=== PATIENT | male | born 1950 | race Caucasian/White ===

== ENCOUNTER 2018-11-01 19:01 | Emergency (ER) | payer MEDICARE, BC ==
[2018-11-01 19:13] VITALS: BP 133/66
--- NOTE | 2018-11-01 20:18 | UC ---
Lower Extremity/Ankle HPI - HPI Summary HPI Summary: 67 y/o female presents to the urgent c/o Rt great toe pain w/ black great toe nail s/p falling 2 steps at a hotel on 10/08/2018. Pt reports he was on vacation in [place] and this is the reason he didn't get medical attention sooner. Pt thinks hie great toe nail s now loose and need to be removed. He has mild pain 1 /10 when he walks or at touch. he has PMHX of DM type II and adrenal Insufficiency. He has applied Bacitracin oint ove the toe nail to avoid infection, but for the last week he has noticed mild redness at the base of the nail. Pt can move his toes or foot w/o any difficulty. Pt denies fever, numbness or tingling sensation over the Rt toe, SOB, calf pain, SOB, chest pain , fever, abdominal pain, N/v/D. - History of Current Complaint Chief Complaint: UCLowerExtremity Stated Complaint: SOFT TISSUE Time Seen by Provider: 11/01/18 20:02 Hx Obtained From: Patient Onset/Duration: Sudden Onset, Lasting Weeks - 1 month on 10/08/2018, Still Present Severity Initially: Moderate Severity Currently: Mild Pain Intensity: 1 Pain Scale Used: 0-10 Numeric Aggravating Factor(s): Ambulation Alleviating Factor(s): Rest, OTC Meds - bacitrain oint Able to Bear Weight: Yes - Risk Factors Gout Risk Factors: Negative DVT Risk Factors: Negative Septic Arthritis Risk Factor: Negative - Allergies/Home Medications Allergies/Adverse Reactions: Allergies Allergy/AdvReac Type Severity Reaction Status Date / Time No Known Allergies Allergy Verified 04/03/17 14:22 PMH/Surg Hx/FS Hx/Imm Hx Previously Healthy: Yes Endocrine History: Diabetes Other Endocrine History: adrenal insufficiency Cardiovascular History: Cardiac Disease - Surgical History Surgical History: Yes Surgery Procedure, Year, and Place: 3 HEART ABLASIONS-LAST ONE 2005 - Social History Alcohol Use: Occasionally Substance Use Type: None Smoking Status (MU): Never Smoked Tobacco Review of Systems All Other Systems Reviewed And Are Negative: Yes Constitutional: Positive: Negative Skin: Positive: Bruising - left great to nail w/ hematoma s/p injury Eyes: Positive: Negative ENT: Positive: Negative Respiratory: Positive: Negative Cardiovascular: Positive: Negative Gastrointestinal: Positive: Negative Genitourinary: Positive: Negative Motor: Positive: Negative Neurovascular: Positive: Negative Musculoskeletal: Positive: Other: - mild left great toe pain Neurological: Positive: Negative Psychological: Positive: Negative Is Patient Immunocompromised?: No Physical Exam - Summary Physical Exam Summary: Vital Signs Reviewed: Yes General : well developed, well nourished old male w/o any apparent distress Eyes: Positive: Conjunctiva Clear - PERRLA, EOMI ENT: Positive: Normal ENT inspection, Hearing grossly normal, Pharynx normal, TMs normal Neck: Positive: Supple, Nontender, No Lymphadenopathy Respiratory: Positive: Chest non-tender, Lungs clear, Normal breath sounds, No respiratory distress Cardiovascular: Positive: RRR, No Murmur, Pulses Normal Abdomen Description: Positive: Nontender, No Organomegaly, Soft. Negative: CVA Tenderness (R), CVA Tenderness (L) Bowel Sounds: Positive: Present Musculoskeletal: Positive: Strength Intact, ROM Intact, No Edema,R Foot/Toes: Pt is able to bear weight but ambulate with mild limping. Rt great toe w/ erythema at the base on the great toe nail. positive subungal hematoma black and loosen toe nail. No ecchymosis, ulcers or break in skin integrity. The Rt foot is without obvious asymmetry or deformity when compared to the R foot. No bony step-off, No tenderness to palpation over toes, point tenderness over the dorsal side at the base of the RT great toe nail, no tenderness of hindfoot, mid foot or other toes. FROM of all toes. plantar/dorsiflexion, inversion/ eversion due to pain. Distal motor and neurovascular status are intact. Neurological Exam: Normal Psychological Exam: Normal Skin Exam: Normal Triage Information Reviewed: Yes Vital Signs: Initial Vital Signs Temp 99.5 F 11/01/18 19:05 Pulse 81 11/01/18 19:05 Resp 16 11/01/18 19:05 BP 133/66 11/01/18 19:05 Pulse Ox 100 11/01/18 19:05 Lower Extremity Course/Dx - Course Course Of Treatment: 67 y/o female presents to the urgent c/o Rt great toe pain w/ black great toe nail s/p falling 2 steps at a hotel on 10/08/2018. Pt reports he was on vacation in [place] and this is the reason he didn't get medical attention sooner. Pt thinks hie great toe nail s now loose and need to be removed. He has mild pain 1/10 when he walks or at touch. he has PMHX of DM type II and adrenal Insufficiency. He has applied Bacitracin oint ove the toe nail to avoid infection, but for the last week he has noticed mild redness at the base of the nail. Pt can move his toes or foot w/o any difficulty. Pt denies fever, numbness or tingling sensation over the Rt toe, SOB, calf pain, SOB, chest pain, fever, abdominal pain, N/v/D. Hx obtained. Pt w/ old sugungal hematoma and mild cellulitis at the base of the nail bed w/o any drainage. FROM of the great toe, capillary refill is brisk and pulses WNL on examination. Great toe X-ray ordered to r/o osteomyelitis: impression: No fracture or abnormality as per Dr Valdez.Pt's Great toe soak in warm water for 20 min to see if toe nail can be removed. Toe nail still very attached to the sides, only loose at the base. Great toe nail trimmed sicne it was very long. Bacitrain oint applied over and sterile dressing applied by the nurse. Pt given first dose of Keflex PO at the clinic by nurse. Pt Rx same antibiotic as directed below cor cellulitis. Pt Strongly advised to f/u w/ podiatris referral Dr Huertas for further management on his subungal hematoma since he is Diabetic and needs further foot care. Pt will be notified tomorrow of final radiology reading. D/C instructions explained.Pt understood and agreed with D/C instructions. - Differential Dx/Diagnosis Differential Diagnosis/HQI/PQRI: Contusion, Fracture (Closed), Infection, Osteomyelitis Provider Diagnosis: Hematoma, subungual, great toe, right, Cellulitis of great toe, right Discharge - Sign-Out/Discharge Documenting (check all that apply): Patient Departure - d/c home All imaging exams completed and their final reports reviewed: No - Discharge Plan Condition: Stable Disposition: HOME Prescriptions: Cephalexin CAP* [Keflex CAP*] 500 mg PO QID #27 cap Patient Education Materials: Subungual Hematoma (ED), Cellulitis (ED) Referrals: Ranjeet Shields MD [Primary Care Provider] - 3 Days Dixon Cueto DPM [Doctor of Podiatric Medicine] - 2 Days Additional Instructions: 1-Please take Keflex PO as directed. first dose given at the clinic tonight. 2-Please apply Bacitracin oint at the base of the great toe nail as directed. Avoid strenuous exercise or standing for long periods of time. Elevate your foot at night 3- Please f/u w/ [facility] Worker Dr Cueto in 2-3 days for further management on your Subungal hematoma. 4- If you develop fever, severe toe pain with swelling on your toe despite taking antibiotic please go immediately to the ER for further management. - Billing Disposition and Condition Condition: STABLE Disposition: Home
[2018-11-01] MEDS ORDERED: Cephalexin CAP* 500 MG PO ONE (21:06)
== END 2018-11-01 21:50 | disposition home or self-care (01) ==
LOC: UCEAST 19:01
DX: S90.211A Contusion of right great toe with damage to nail, initial encounter (principal); L03.031 Cellulitis of right toe; E11.9 Type 2 diabetes mellitus without complications; W10.8XXA Fall (on) (from) other stairs and steps, initial encounter; Y92.9 Unspecified place or not applicable
CPT/HCPCS: 99212; A9270-GY; G0463

== ENCOUNTER 2021-07-14 13:43 | Inpatient (IN) ==
[2021-07-14] MEDS ORDERED: NS 0.9% 1000 ml BAG 1,000 ML IV ONE (14:16)
[2021-07-14] MEDS ORDERED: Hydrocortisone INJ 100 MG/2ML 2 ML VIAL IV ONE (14:27)
[2021-07-14] MEDS ORDERED: NS 0.9% 1000 ml BAG 1,000 ML IV SCH (14:30)
[2021-07-14 15:34] LABS: ABS Basophils 0.1 10^3/ul (0-0.2); ABS Lymphocytes 0.6 10^3/ul (1.0-4.8); ABS Monocytes 0.8 10^3/ul (0-0.8); ABS Neutrophils 10.9 10^3/ul (1.5-7.7); Eosinophil % 0.4 %; Hematocrit 45 % (42-52); Hemoglobin 15.7 g/dL (14.0-18.0); Lymphocyte % 4.8 %; Mean Corpuscular HGB Conc 35 g/dL (31-36); Mean Corpuscular Hemoglobin 33 pg (27-31); Mean Corpuscular Volume 94 fL (80-94); Mean Platelet Volume 8.2 fL (7.4-10.4); Platelet Count 195 10^3/uL (150-450); Red Blood Count 4.73 10^6 /uL (4.18-5.48); Red Cell Distribution Width 12 % (10-15); White Blood Count 12.4 10^3/uL (3.5-10.8)
[2021-07-14 15:36] LABS: Urine Appearance Cloudy; Urine Bilirubin Negative (Negative); Urine Blood 3+ (Negative); Urine Color Yellow; Urine Glucose 3+(>=500 mg/dL) (Negative); Urine Ketones 2+ (Negative); Urine Nitrite Negative (Negative); Urine Protein 1+(30 mg/dL) (Negative); Urine Specific Gravity 1.028 (1.002-1.030); Urine Urobilinogen Negative (Negative)
[2021-07-14 15:52] LABS: ALT 46 U/L (7-52); AST 184 U/L (13-39); Albumin 3.4 g/dL (3.2-5.2); Albumin/Globulin Ratio 1.4 (1-3); Alkaline Phosphatase 49 U/L (35-149); Anion Gap 12 mmol/L (2-11); Blood Urea Nitrogen 37 mg/dL (6-24); CO2 Carbon Dioxide 21 mmol/L (22-32); Calcium 8.2 mg/dL (8.6-10.3); Chloride 103 mmol/L (101-111); Globulin 2.5 g/dL (2-4); Glucose 134 mg/dL (70-100); Magnesium 2.1 mg/dL (1.9-2.7); Potassium 4.7 mmol/L (3.5-5.0); Sodium 136 mmol/L (135-145); Total Protein 5.9 g/dL (6.4-8.9)
[2021-07-14 16:07] LABS: Urine Bacteria Absent (Absent); Urine Red Blood Cell Trace(0-2/hpf) (Absent); Urine White Blood Cell Trace(0-5/hpf) (Absent)
[2021-07-14 16:26] LABS: Lipase 17 U/L (11.0-82.0)
[2021-07-14 17:35] LABS: Rapid COVID-19 Molecular Undetected (Undetected)
[2021-07-14 17:55] LABS: PCO2 Arterial 34 mmHg (35-45); PO2 Arterial 81 mmHg (80-100)
[2021-07-14] MEDS: NORMOSOL-R pH 7.4 1000 mL BAG 1,000 ML IV SCH (18:20)
[2021-07-14 19:18] LABS: INR 1.33 (0.86-1.15)
[2021-07-14 19:40] LABS: Troponin I 0.37 ng/mL (<0.03)
[2021-07-14 20:34] LABS: Urine Benzodiazepine Screen None Detected (None Detect); Urine Cannabinoids Screen None Detected (None Detect); Urine Opiates Screen None Detected (None Detect)
[2021-07-14] MEDS: Nystatin SUSPENSION 100,000 UNITS/ML UDC PO SCH (23:45)
[2021-07-14] MEDS: Hydrocortisone INJ 100 MG/2ML 2 ML VIAL IV SCH (23:45)
[2021-07-15] MEDS: Hydrocortisone INJ 100 MG/2ML 2 ML VIAL IV SCH (05:29)
[2021-07-15 05:49] LABS: ABS Lymphocytes 0.4 10^3/ul (1.0-4.8); ABS Monocytes 0.2 10^3/ul (0-0.8); ABS Neutrophils 7.5 10^3/ul (1.5-7.7); Hematocrit 41 % (42-52); Hemoglobin 14.2 g/dL (14.0-18.0); Lymphocyte % 5.5 %; Mean Corpuscular HGB Conc 35 g/dL (31-36); Mean Corpuscular Hemoglobin 33 pg (27-31); Mean Corpuscular Volume 96 fL (80-94); Mean Platelet Volume 8.1 fL (7.4-10.4); Platelet Count 180 10^3/uL (150-450); Red Blood Count 4.24 10^6 /uL (4.18-5.48); Red Cell Distribution Width 12 % (10-15); White Blood Count 8.1 10^3/uL (3.5-10.8)
[2021-07-15 06:03] LABS: Calcium 7.9 mg/dL (8.6-10.3); Magnesium 2.4 mg/dL (1.9-2.7); Phosphorus 4.6 mg/dL (2.5-5.0); Potassium 4.8 mmol/L (3.5-5.0)
[2021-07-15] MEDS: NORMOSOL-R pH 7.4 1000 mL BAG 1,000 ML IV SCH (08:29)
[2021-07-15] MEDS: Nystatin SUSPENSION 100,000 UNITS/ML UDC PO SCH ×4 (10:53→20:18)
[2021-07-15] MEDS ORDERED: NORMOSOL-R pH 7.4 1000 mL BAG 1,000 ML IV SCH (12:01)
[2021-07-15] MEDS ORDERED: Gadoteridol (CONTRAST) 279.3 MG/ML 10 ML IV ONE (15:56)
[2021-07-15] MEDS: Enoxaparin 40 MG/0.4 ML SYR SUBCUT SCH (18:09)
[2021-07-15] MEDS ORDERED: Lactated Ringers 1000 ml BAG 1,000 ML IV ONE (18:43)
[2021-07-16 06:55] LABS: ABS Eosinophils 0.1 10^3/ul (0-0.6); ABS Lymphocytes 0.8 10^3/ul (1.0-4.8); ABS Monocytes 0.5 10^3/ul (0-0.8); ABS Neutrophils 8.3 10^3/ul (1.5-7.7); Eosinophil % 0.9 %; Hematocrit 37 % (42-52); Hemoglobin 12.9 g/dL (14.0-18.0); Mean Corpuscular HGB Conc 35 g/dL (31-36); Mean Corpuscular Hemoglobin 33 pg (27-31); Mean Corpuscular Volume 94 fL (80-94); Mean Platelet Volume 8.4 fL (7.4-10.4); Nucleated Red Blood Cells % 0.1; Platelet Count 194 10^3/uL (150-450); Red Blood Count 3.93 10^6 /uL (4.18-5.48); Red Cell Distribution Width 12 % (10-15); White Blood Count 9.7 10^3/uL (3.5-10.8)
[2021-07-16 07:10] LABS: Albumin/Globulin Ratio 1.4 (1-3); Calcium 7.9 mg/dL (8.6-10.3); Globulin 2.1 g/dL (2-4); Total Bilirubin 0.7 mg/dL (0.2-1.0); Total Protein 5.1 g/dL (6.4-8.9)
[2021-07-16] MEDS ORDERED: EMPAGLIFLOZIN 25 MG PO SCH (09:00)
[2021-07-16] MEDS: Nystatin SUSPENSION 100,000 UNITS/ML UDC PO SCH ×4 (09:31→22:00)
[2021-07-16] MEDS ORDERED: Dextrose 50% Syringe 50 ml 25 GM/50 ML SYRINGE IV PUSH PRN (16:10)
[2021-07-16] MEDS: Enoxaparin 40 MG/0.4 ML SYR SUBCUT SCH (18:03)
[2021-07-17 07:21] LABS: Calcium 8.1 mg/dL (8.6-10.3); Potassium 3.8 mmol/L (3.5-5.0); eGFR CKD-EPI 90.7 (>60)
[2021-07-17 07:42] VITALS: BP 110/57
[2021-07-17] MEDS: Nystatin SUSPENSION 100,000 UNITS/ML UDC PO SCH (08:55)
== END 2021-07-17 11:24 | disposition home or self-care (01) | DRG 565 ==
LOC: ED 13:43 → SUATTDRO 18:30 → EDHOLD 18:30 → ICU 20:08 → SSU 07-15 19:33
PROVIDERS: ADMIT Student in an Organized Health Care Education/Training Program; ATTEND Internal Medicine

== ENCOUNTER 2024-02-02 09:52 | Observation (INO) ==
[~2024-02-02 09:52] MED LIST: Metoclopramide 5 MG/ML VIAL (10 mg) IV PRN; NS 0.45% 1000 ml BAG 1,000 ML IV SCH; Naloxone 0.4 mg VIAL 0.4 mg/ml 1 ml VIAL IV PRN; Ondansetron 4 mg VIAL 2 MG/ML 2 ml VIAL IV PRN
[2024-02-02] MEDS ORDERED: ceFAZolin 2 GM PREMIX 2 GM/50 ML BAG ONE (10:20)
[2024-02-02 10:45] LABS: Rapid COVID-19 Molecular Undetected (Undetected)
[2024-02-02] MEDS: Scopolamine 1 mg/72hr PATCH TRANSDERM ONE (10:48)
[2024-02-02] MEDS ORDERED: Hydrocortisone INJ 100 MG/2ML 2 ML VIAL ONE ×2 (11:00→13:45)
[2024-02-02] MEDS: Buffered Lidocaine 1% SYRIN 1 ml INTRADERM ONE (11:02)
[2024-02-02] MEDS: Hydrocortisone INJ 100 MG/2ML 2 ML VIAL IV ONE ×2 (11:02→22:34)
[2024-02-02] MEDS: Lactated Ringers 1000 ml BAG 1,000 ML IV SCH ×2 (11:03→18:09)
[2024-02-02] MEDS ORDERED: ROPIVACAINE 5 MG/ML 30 ML BTL (0.5%) ONE (12:09)
[2024-02-02] MEDS ORDERED: Midazolam 2 mg/2 ml VIAL 1 mg/ml 2 ml VIAL (2 mg) ONE (12:28)
[2024-02-02] MEDS ORDERED: Phenylephrine 40 mcg/mL 10mL (400mcg) SYRINGE ONE (13:26)
[2024-02-02] MEDS ORDERED: Propofol 10 MG/ML 20 ML BTL ONE (14:48)
[2024-02-02] MEDS ORDERED: Glycopyrrolate IV 0.2 MG/ML 1 ML VIAL ONE (15:12)
[2024-02-02] MEDS ORDERED: Ondansetron 4 mg VIAL 2 MG/ML 2 ml VIAL IV PRN (15:32)
[2024-02-02] MEDS ORDERED: Ondansetron ODT 4 mg TAB 4 MG TAB PO PRN (15:32)
[2024-02-02] MEDS ORDERED: Lactulose 30 ml UDC PO PRN (15:32)
[2024-02-02] MEDS ORDERED: Morphine 2 MG/ML SYRINGE IV PRN (15:32)
[2024-02-02] MEDS ORDERED: Calcium Carb (TUMS) 500 mg CHEW TAB PO PRN (15:32)
[2024-02-02] MEDS ORDERED: Magnesium Hydroxide LIQ 30 ML UDC PO PRN (15:32)
[2024-02-02] MEDS ORDERED: fentaNYL 100 mcg/2 ml 50 MCG/ML VIAL ONE (15:52)
[2024-02-02] MEDS: fentaNYL 100 mcg/2 ml 50 MCG/ML VIAL IV PRN (15:54)
[2024-02-02] MEDS: Acetaminophen IV 1 GM/100ML 1,000 MG/100 ML BAG IV ONE (16:49)
[2024-02-02] MEDS ORDERED: ceFAZolin 2 GM in NS PREMIX 2 GM/100 ML BAG IVPB SCH (21:00)
[2024-02-02] MEDS: ceFAZolin 2 GM PREMIX 2 GM/50 ML BAG IV SCH (22:34)
[2024-02-02] MEDS: Magnesium Hydroxide LIQ 30 ML UDC PO SCH (22:36)
[2024-02-03] MEDS: Vitamin THERAPEUTIC TAB PO SCH ×2 (08:33→08:41)
[2024-02-03] MEDS: Hydrocortisone INJ 100 MG/2ML 2 ML VIAL IV SCH (08:39)
[2024-02-03] MEDS: Empagliflozin 25 MG TAB PO SCH (08:41)
[2024-02-03 08:57] LABS: Hematocrit 40.1 % (38-53); Mean Platelet Volume 7.7 fL (7.5-11.2); Platelet Count 246 10^3/uL (150-450)
[2024-02-03 10:01] LABS: Calcium 8.4 mg/dL (8.6-10.3); Creatinine, Serum 1.24 mg/dL (0.67-1.17); Potassium 4.2 mmol/L (3.5-5.0); eGFR CKD-EPI 60.6 (>60)
[2024-02-03 10:28] LABS: Urine Appearance Clear; Urine Bilirubin Negative (Negative); Urine Blood Negative (Negative); Urine Color Light-Yellow; Urine Glucose 4+ (>=1000 mg/dL) (Negative); Urine Ketones 1+ (Negative); Urine Nitrite Negative (Negative); Urine Protein Trace (Negative); Urine Specific Gravity 1.033 (1.002-1.030); Urine Urobilinogen Negative (Negative)
[2024-02-04 06:42] LABS: Hematocrit 39.8 % (38-53); Hemoglobin 14.1 g/dL (13.2-16.3); Platelet Count 209 10^3/uL (150-450)
[2024-02-04 08:44] LABS: Calcium 8.8 mg/dL (8.6-10.3); Creatinine, Serum 1.17 mg/dL (0.67-1.17); Potassium 4.4 mmol/L (3.5-5.0)
[2024-02-04 13:54] VITALS: BP 126/55
== END 2024-02-04 14:45 | disposition home or self-care (01) ==
LOC: INTOOBSV 09:52 → AA 09:52 → SSU 17:10
PROVIDERS: ADMIT Orthopaedic Surgery Adult Reconstructive Orthopaedic Surgery; ATTEND Orthopaedic Surgery Adult Reconstructive Orthopaedic Surgery

== ENCOUNTER 2024-06-02 08:08 | Observation (INO) ==
[~2024-06-02 08:08] MED LIST changes: -Metoclopramide 5 MG/ML VIAL (10 mg) IV PRN
[2024-06-02] MEDS ORDERED: Midazolam 2 mg/2 ml VIAL 1 mg/ml 2 ml VIAL (2 mg) ONE ×3 (08:31→10:56)
[2024-06-02] MEDS ORDERED: Tranexamic Acid 1 GM/100ML BAG 2,000 MG/200 ML BAG IV ONE (08:32)
[2024-06-02] MEDS ORDERED: ceFAZolin 2 GM PREMIX 2 GM/50 ML BAG ONE (08:32)
[2024-06-02] MEDS ORDERED: fentaNYL 100 mcg/2 ml 50 MCG/ML VIAL ONE ×3 (08:53→14:28)
[2024-06-02] MEDS ORDERED: Ondansetron 4 mg VIAL 2 MG/ML 2 ml VIAL ONE (08:53)
[2024-06-02] MEDS ORDERED: Lidocaine 2% PF 5 ML VIAL ONE (08:53)
[2024-06-02] MEDS ORDERED: Dexamethasone IV 4 MG/ML VIAL 1 ml VIAL ONE (08:53)
[2024-06-02 09:01] LABS: Rapid COVID-19 Molecular Undetected (Undetected)
[2024-06-02] MEDS: Acetaminophen IV 1 GM/100ML 1,000 MG/100 ML BAG IV ONE (09:05)
[2024-06-02] MEDS: Buffered Lidocaine 1% SYRIN 1 ml INTRADERM ONE (09:06)
[2024-06-02] MEDS: Lactated Ringers 1000 ml BAG 1,000 ML IV SCH ×2 (09:06→16:47)
[2024-06-02] MEDS ORDERED: ROPIVACAINE 5 MG/ML 30 ML BTL (0.5%) ONE (10:27)
[2024-06-02] MEDS ORDERED: Hydrocortisone INJ 100 MG/2ML 2 ML VIAL ONE ×2 (10:54→10:59)
[2024-06-02] MEDS ORDERED: Propofol 10 MG/ML 20 ML BTL ONE (12:46)
[2024-06-02] MEDS ORDERED: Ondansetron ODT 4 mg TAB 4 MG TAB PO PRN (13:33)
[2024-06-02] MEDS ORDERED: Ondansetron 4 mg VIAL 2 MG/ML 2 ml VIAL IV PRN (13:33)
[2024-06-02] MEDS ORDERED: Calcium Carb (TUMS) 500 mg CHEW TAB PO PRN (13:33)
[2024-06-02] MEDS ORDERED: Lactulose 30 ml UDC PO PRN (13:33)
[2024-06-02] MEDS ORDERED: Magnesium Hydroxide LIQ 30 ML UDC PO PRN (13:33)
[2024-06-02] MEDS ORDERED: Morphine 2 MG/ML SYRINGE IV PRN (13:33)
[2024-06-02] MEDS ORDERED: Acetaminophen IV 1 GM/100ML 1,000 MG/100 ML BAG IV ONE (14:29)
[2024-06-02] MEDS: fentaNYL 100 mcg/2 ml 50 MCG/ML VIAL IV PRN (14:35)
[2024-06-02] MEDS ORDERED: Dextrose 50% Syringe 50 ml 25 GM/50 ML SYRINGE IV PUSH PRN (15:30)
[2024-06-02] MEDS: Magnesium Hydroxide LIQ 30 ML UDC PO SCH (20:09)
[2024-06-02] MEDS: ceFAZolin 2 GM PREMIX 2 GM/50 ML BAG IV SCH (20:11)
[2024-06-03 06:02] LABS: Hematocrit 38.2 % (38-53); Hemoglobin 12.8 g/dL (13.2-16.3); Mean Platelet Volume 7.7 fL (7.5-11.2); Platelet Count 248 10^3/uL (150-450)
[2024-06-03 06:29] LABS: Calcium 8.6 mg/dL (8.6-10.3); Creatinine, Serum 1.09 mg/dL (0.67-1.17); Potassium 4.8 mmol/L (3.5-5.0); eGFR CKD-EPI 70.8 (>60)
[2024-06-03] MEDS: Vitamin THERAPEUTIC TAB PO SCH (08:06)
[2024-06-03] MEDS: Empagliflozin 25 MG TAB PO SCH (08:57)
[2024-06-03 11:59] VITALS: BP 118/55
== END 2024-06-03 14:07 | disposition home or self-care (01) ==
LOC: OR 08:08 → SSU 08:08
PROVIDERS: ADMIT Orthopaedic Surgery Adult Reconstructive Orthopaedic Surgery; ATTEND Orthopaedic Surgery Adult Reconstructive Orthopaedic Surgery